=== PATIENT | male | born 1930 | race Caucasian/White ===

== ENCOUNTER 2021-03-06 06:39 | Outpatient (CLI) | payer BC | END 2021-03-06 23:59 | disposition home or self-care (01) | LOC: LAB 06:39 | PROVIDERS: ATTEND Orthopaedic Surgery | DX: Z75.3 Unavailability and inaccessibility of health-care facilities (principal) ==

== ENCOUNTER 2021-03-08 07:15 | Outpatient (CLI) | payer BC | END 2021-03-08 23:59 | disposition home or self-care (01) | LOC: LAB 07:15 | PROVIDERS: ATTEND Orthopaedic Surgery | DX: Z01.812 Encounter for preprocedural laboratory examination (principal); Z20.822 Contact with and (suspected) exposure to COVID-19 ==

== ENCOUNTER 2021-03-09 06:53 | Day surgery (SDC) | payer BC ==
[2021-03-09] MEDS ORDERED: POLYMYXIN B SULFATE 500,000 UNITS VIAL ONE (07:46)
[2021-03-09] MEDS ORDERED: MORPHINE SULFATE PF 10 MG/10 ML AMPUL IV ONE (07:46)
[2021-03-09] MEDS ORDERED: BUPIVACAINE/EPI PF 0.25% 30 ML VIAL ONE (07:46)
[2021-03-09] MEDS ORDERED: BUPIVACAINE 0.25% 30 ML VIAL ONE (07:47)
[2021-03-09] MEDS ORDERED: FENTANYL CITRATE 100 MCG/2 ML AMPUL ONE (08:15)
[2021-03-09] MEDS ORDERED: ROCURONIUM BROMIDE 50 MG/5 ML VIAL ONE (08:16)
[2021-03-09] MEDS ORDERED: TRAMADOL HCL 50 MG TABLET ONE (12:49)
== END 2021-03-09 13:30 | disposition home or self-care (01) ==
LOC: DS 06:53
PROVIDERS: ATTEND Orthopaedic Surgery
DX: S83.242A Other tear of medial meniscus, current injury, left knee, initial encounter (principal); S83.282A Other tear of lateral meniscus, current injury, left knee, initial encounter; M94.262 Chondromalacia, left knee; M65.88 Other synovitis and tenosynovitis, other site; I10 Essential (primary) hypertension; E78.5 Hyperlipidemia, unspecified; J45.909 Unspecified asthma, uncomplicated; F32.9 Major depressive disorder, single episode, unspecified; M19.90 Unspecified osteoarthritis, unspecified site; Z79.899 Other long term (current) drug therapy; Z98.890 Other specified postprocedural states; Z72.89 Other problems related to lifestyle; X58.XXXA Exposure to other specified factors, initial encounter; Y93.89 Activity, other specified; Y92.89 Other specified places as the place of occurrence of the external cause; Y99.8 Other external cause status
CPT/HCPCS: 36415; 71045; 84132; A4663; J2274; J3010; J3490; J7120